=== PATIENT | male | born 1970 | race Asian ===

== ENCOUNTER 2021-01-09 11:13 | Emergency (ER) | payer SELFPAY ==
[2021-01-09 12:25] VITALS: BP 152/83
--- NOTE | 2021-01-09 13:08 | Emergency Department Report ---
Chief Complaint: Urogenital-Male Stated Complaint: STD Time Seen by Provider: 01/09/21 13:06 - HPI History of Present Illness: Patient is a 50-year-old male who presents emergency room with complaints of an "STD." He states over the last couple days he has had penile discharge. He states that he did have sexual intercourse unprotected with a new partner. He denies any fever, nausea, vomiting, diarrhea, dysuria, pain or swelling in the testicles, abdominal pain, urinary retention, back pain. Patient denies past medical history. No allergies medications. Vitals are stable On exam: Non toxic appearing, no acute distress atraumatic, normocephalic normal appearance of the eyes, EOMI, no periorbital edema or ecchymosis moist mucus membranes No stridor, no respiratory distress A&O x4, normal gait Patient is presenting with symptoms most consistent with STD He denies any fever, nausea, vomiting, diarrhea, dysuria, pain or swelling in the testicles, abdominal pain, urinary retention, back pain. This hospital policy does not treat or test for uncomplicated male STDs Patient referred to the appropriate resources Discussed strict return precautions in detail with patient Medical screening examination performed and there is no threat to life or limb at this time - Exam Vital Signs: Vital Signs 01/09/21 12:24 Temperature 98.2 F Pulse Rate 84 Respiratory 20 Rate Blood Pressure 152/83 O2 Sat by Pulse 97 Oximetry MSE screening note: Focused history and physical exam performed. ED Disposition for MSE Clinical Impression: Concern about STD in male without diagnosis Disposition: Z- MED SCREENING EXAM-LEFT Is pt being admited?: No Does the pt Need Aspirin: No Condition: Stable Instructions: Safe Sex Additional Instructions: follow up with clinic or health department for full std panel. have any partner tested and treated as well. avoid sexual intercourse. return to the emergency room for any new or worsening symptoms. [facility] in [place], [place] Address: [address] [place] [address], [place] [address] Referrals: [facility] Depart [Outside] - 2-3 Days Time of Disposition: 13:07 Print Language: PERSIAN
== END 2021-01-09 13:15 | disposition left against medical advice (07) ==
LOC: ED 11:13
DX: Z20.2 Contact with and (suspected) exposure to infections with a predominantly sexual mode of transmission (principal); Z53.21 Procedure and treatment not carried out due to patient leaving prior to being seen by health care provider

== ENCOUNTER 2021-05-21 18:38 | Emergency (ER) | payer SELFPAY | END 2021-05-21 20:01 | disposition left against medical advice (07) | LOC: ED 18:38 | DX: Z01.818 Encounter for other preprocedural examination (principal); Z53.21 Procedure and treatment not carried out due to patient leaving prior to being seen by health care provider ==

== ENCOUNTER 2022-01-28 21:08 | Emergency (ER) | payer SELFPAY ==
[2022-01-28 21:15] VITALS: BP 156/87
[2022-01-28] MEDS ORDERED: SODIUM CHLORIDE 0.9% 1000 ML 1,000 ML IV ONE (21:22)
--- NOTE | 2022-01-28 21:28 | Emergency Department Report ---
HPI - General Chief Complaint: Overdose Time Seen by Provider: 01/28/22 21:20 - HPI HPI: This is a 51-year-old male brought in by EMS with concerns of short of breath and also possible overdose. According to EMS patient stated that he used to use cocaine in the 80s but now he used both meth. EMS states they have given 5mg narcan and didn't make any difference. According patient he used meth not long prior to arrival. At the time of my evaluation patient only endorsed short of breath. Patient also state he has a history of COPD and also hypertension. Patient current denies any fever chill night sweat dizziness blurred vision lightheadedness headache tinnitus ear pain runny nose sore throat loss of taste loss of smell chest pain palpitation cough abdominal pain nausea vomiting thyroid constipation dysuria myalgia arthralgia new rash and heat or cold intolerance. ED Past Medical Hx - Past Medical History Previous Medical History?: Yes Hx Hypertension: Yes Hx COPD: Yes Additional medical history: was in a coma - Social History Smoking Status: Current Every Day Smoker Substance Use Type: Methamphetamines ED Review of Systems ROS: Stated complaint: DRUG USE Other details as noted in HPI Constitutional: see HPI Eyes: as per HPI ENT: as per HPI Respiratory: see HPI, shortness of breath Cardiovascular: as per HPI Endocrine: see HPI Gastrointestinal: as per HPI Genitourinary: as per HPI Musculoskeletal: as per HPI Skin: as per HPI Neurological: as per HPI Psychiatric: as per HPI Hematological/Lymphatic: as per HPI Physical Exam - Physical Exam Vital Signs: Vital Signs 01/28/22 21:12 Temperature 98.1 F Pulse Rate 98 H Respiratory 18 Rate Blood Pressure 156/87 O2 Sat by Pulse 100 Oximetry Physical Exam: AOX4, GCS 15, NCAT, PERRLA, EOMI, +S1/2, - W/R/C, no accessory muscle use, +BS, SNTNDNP, full ROM no rash (numerous tattoos), no rash. ED Course Vital Signs 01/28/22 21:12 Temperature 98.1 F Pulse Rate 98 H Respiratory 18 Rate Blood Pressure 156/87 O2 Sat by Pulse 100 Oximetry - Reevaluation(s) Reevaluation #1: 01/28/22 21:45 To my attention that patient was to leave against medical vice. On my arrival patient is alert oriented patient is aware of the year and knows which hospital he is and patient is also aware of the month. I have informed patient the risk of leaving against medical vice given that he may have overdosed on medication or substance; however patient still insisted to leave against medical vice despite knowing that he may be putting his life at risk. Conversation was witnessed by the nurse. Critical care attestation.: If time is entered above; I have spent that time in minutes in the direct care of this critically ill patient, excluding procedure time. ED Disposition Clinical Impression: Overdose Disposition: LEFT AGAINST MEDICAL ADVICE Is pt being admited?: No Does the pt Need Aspirin: No Condition: Stable Additional Instructions: If you change your mind please return to the emergency room immediately for further evaluation. Make a follow-up appointment to primary care provider to be seen within 3 days for further ER visit follow-up. Time of Disposition: 21:47
--- NOTE | 2022-01-28 22:10 | XRay Report ---
. XR chest 1V ap INDICATION / CLINICAL INFORMATION: Altered Mental Status. COMPARISON: None available. FINDINGS: SUPPORT DEVICES: None. HEART /PULMONARY VASCULATURE: Heart is enlarged. Pulmonary vasculature is congested. LUNGS / PLEURA: Patchy mixed interstitial and airspace opacities are present throughout the lungs. No dular opacities are noted within the left hilar region and right midlung. No sizable pleural effusion . IMPRESSION: Patchy mixed interstitial and airspace opacities throughout the lungs, may reflect pulmonary edema or pneumonia. Nodular opacities in bilateral lungs may reflect focal infiltrates, though pulmonary nodu les are not excluded. Consider further evaluation with CT. Signer Name: Matt Grey MD Signed: 01/28/2022 10:05 PM Workstation Name: [id number]
== END 2022-01-28 22:01 | disposition left against medical advice (07) ==
LOC: ED 21:08
DX: T40.5X1A Poisoning by cocaine, accidental (unintentional), initial encounter (principal); I10 Essential (primary) hypertension; J44.9 Chronic obstructive pulmonary disease, unspecified; F17.200 Nicotine dependence, unspecified, uncomplicated; Y92.9 Unspecified place or not applicable
CPT/HCPCS: 71045; 99283